=== PATIENT | male | born 2000 | race Caucasian/White ===

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

== ENCOUNTER 2019-07-11 07:08 | Emergency (ER) | payer MEDICAID ==
[~2019-07-11] VITALS: Ht 177.8 cm; Wt 64.6 kg
[~2019-07-11 07:08] MED LIST changes: +OMEP40CA13 PO; -OMEP40CA37 PO
[2019-07-11 07:12] VITALS: BP 155/83
[2019-07-11] MEDS ORDERED: ketorolac trometh. 30mg/ml inj. IM ONE (08:10)
== END 2019-07-11 09:30 | disposition home or self-care (01) ==
LOC: ER 07:09
DX: M25.532 Pain in left wrist (principal); F12.90 Cannabis use, unspecified, uncomplicated; Z87.891 Personal history of nicotine dependence; W51.XXXA Accidental striking against or bumped into by another person, initial encounter; Y93.71 Activity, boxing; Y92.89 Other specified places as the place of occurrence of the external cause; Y99.8 Other external cause status
CPT/HCPCS: 29125; 73110; 96372; 99283; J1885

== ENCOUNTER 2020-05-04 14:54 | Emergency (ER) | payer MEDICAID ==
[~2020-05-04] VITALS: Ht 177.8 cm; Wt 68.4 kg
[~2020-05-04 14:54] MED LIST changes: -CYCL-1 PO; -OMEP40CA13 PO
[2020-05-04 15:01] VITALS: BP 123/78
== END 2020-05-04 16:09 | disposition home or self-care (01) ==
LOC: ER 14:54
DX: M79.644 Pain in right finger(s) (principal); F12.90 Cannabis use, unspecified, uncomplicated
CPT/HCPCS: 73140; 99283

== ENCOUNTER 2022-05-12 22:13 | Emergency (ER) | payer MEDICAID ==
[~2022-05-12] VITALS: Ht 177.8 cm; Wt 72.7 kg
--- NOTE | 2022-05-12 22:21 | NUR ---
CHAPERONED TRIAGE BRAD RN FOR PT TRIAGE ASSESSMENT.
--- NOTE | 2022-05-12 22:32 | NUR ---
Pt to room and MD at BS
[2022-05-12] MEDS ORDERED: ibuprofen tablet 400 MG TABLET PO ONE (22:35)
[2022-05-12] MEDS ORDERED: CefTRIAXone 1000mg IM Kit (w/lidocaine diluent) IM ONE (23:00)
[2022-05-12] MEDS ORDERED: DOXY100C76 PO (23:57)
[2022-05-13] LABS: CLARITY,URINE CLEAR (Clear); COLOR,URINE YELLOW (Yellow); GLUCOSE, URINE NEGATIVE (Neg); KETONES,URINE NEGATIVE (Neg); LEUKOCYTE ESTERASE ,URINE NEGATIVE (Neg); NITRITES, URINE NEGATIVE (Neg); OCCULT BLOOD,URINE SMALL (Neg); PROTEIN,URINE NEGATIVE (Neg); UROBILINOGEN,URINE 0.2 E.U/dL (0.2-1.0)
[2022-05-13 00:13] LABS: UA COLLECTION TYPE CLN CATCH MIDSTREAM
[2022-05-13 00:14] LABS: BACTERIA,URINE NONE SEEN /HPF (Neg); RBC,URINE 0-2 /HPF (0-2); WBC,URINE 0-4 /HPF (0-4)
[2022-05-13 00:15] LABS: MUCUS STRANDS FEW /LPF (Neg); SQUAMOUS EPITHELIAL CELL,UR NONE SEEN /LPF (FEW)
[2022-05-13 00:22] VITALS: BP 123/76
== END 2022-05-13 00:24 | disposition home or self-care (01) ==
LOC: ER 22:15
DX: N50.812 Left testicular pain (principal); F12.90 Cannabis use, unspecified, uncomplicated; Z79.2 Long term (current) use of antibiotics
CPT/HCPCS: 36415; 76870; 81001; 87491; 87591; 93976; 96372; 99284; J0696; 81003

== ENCOUNTER 2024-07-26 12:38 | Outpatient (CLI) | payer MEDICAID | END 2024-07-26 23:59 | disposition home or self-care (01) | LOC: MRI 12:38 | PROVIDERS: ATTEND Orthopaedic Surgery | DX: M25.472 Effusion, left ankle (principal); M25.372 Other instability, left ankle; Z98.890 Other specified postprocedural states | CPT/HCPCS: 73721 ==

== ENCOUNTER 2025-01-13 12:50 | Emergency (ER) | payer MEDICAID ==
[~2025-01-13] VITALS: Ht 177.8 cm; Wt 79.0 kg
[2025-01-13 13:02] VITALS: BP 124/70; PULSE 69; RESP 18; O2SAT 100
--- NOTE | 2025-01-13 13:20 | Physician Documentation ---
History of Present Illness ~ Chief Complaint: Foot pain Stated Complaint: "I STEPPED ON A PEDRO NAIL LT FOOT" Time Seen by MD: 13:17 Primary Medical Doctor: none HPI This 24-year-old male who presents to the emergency department reporting that he stepped on a pedro nail with his left foot. Was wearing shoes. Unknown tetanus status. Denies other concerns. Tetanus witin 5 years: Yes Medication Reconciliation Allergies: Coded Allergies: No Known Allergies (Unverified , 01/13/25) Miscellaneous Medications Home Med List (No Home Medications), (Reported) Past Medical History Past Medical History: *PSYCH* Past Surgical History: noncontributory Alcohol Use: None Drug Use: marijuana Lives In: Home Occupation: child Review of Systems ROS As stated above in the HPI, otherwise all systems are reviewed and negative. Physical Exam Vital Signs: Temperature: 98.7, Source: Oral, Heart Rate: 69, Respiratory Rate: 18, BP: 124/70, Pulse Oximetry: 100, Weight: 79.050 Oxygen Flow Rate: 0 Physical Exam General: Alert, no apparent distress. Neck: Full range of motion. Respiratory: Lungs clear, no respiratory distress. Chest: No accessory muscle use. Cardiovascular: Regular rate and rhythm, no murmurs. Gastrointestinal: Soft, nontender, nondistended. Bowels sounds present. Extremities: Normal range of motion, no deformity. Neurologic: Oriented x4. Psychiatric: Normal mood and affect. Skin: Normal color, warm and dry. No edema, no ecchymosis. Puncture wound plantar aspect left mid foot. CMS intact distally. Progress Results/Orders Results/Orders Orders - ROSINA WALLACE NP Dressing Orders (01/13/25 13:18) Laceration/I&D Tray Set Up (01/13/25 13:18) Wound Care Orders (01/13/25 13:18) Completed Orders - ROSINA WALLACE NP Tetanus/Pertuss/Diph Acell/Pf (Boostrix (01/13/25 13:20) Medications Received in ER Medications (Trade) Dose Ordered Sig/Vick Route PRN Reason Start Time Stop Time Status Last Admin Dose Admin (Boostrix vaccine syringe) 0.5 ml ONCE ONCE IMVAC 01/13/25 13:20 01/13/25 13:21 DC 01/13/25 13:29 0.5 ML Vital Signs 01/13/25 13:02 Temp 98.7 Pulse 69 Resp 18 B/P (MAP) 124/70 Pulse Ox 100 O2 Flow Rate 0 Medical Decision Making General Diff Dx:Considerations: Include: Abrasion, Contusion, Fracture, Hematoma, Laceration, Malunion, Neurovascular injury, Open fracture, Sprain, Ulcer Departure Time of Disposition: 13:37 Disposition: 01 HOME / SELF CARE / HOMELESS Impression: Primary Impression: Foot pain Additional Impression: Puncture wound of left foot Condition: Stable Discharge Instructions: Puncture Wound Additional Instructions: Your tetanus was updated. Take the antibiotics. Return if worse. Referrals: NO PRIMARY CARE PROVIDER (PCP) Prescriptions Cephalexin*Monohydrate* (Keflex*) 500 Mg Capsule 1 CAP PO BID for 7 Days, #14 CAP Prov: ROSINA WALLACE NP 01/13/25 Education Educated: Patient Educated regarding: diagnosis, treatment, prognosis, need for follow up Signature Scribe Signature: x Attestation: The note accurately reflects work and decisions made by me.Rosina Matthew NP 01/13/25 13:40 ROSINA WALLACE NP Jan 13, 2025 13:20
[2025-01-13] MEDS: TETanus/Pertussis (Acell)/Diphther VAC/PF (Tdap-Adult) 0.5ml syringe IMVAC ONE (13:29)
[2025-01-13] MEDS ORDERED: CEPH-585 PO (13:39)
[2025-01-13 13:50] VITALS: TEMP 98.7
== END 2025-01-13 13:56 | disposition home or self-care (01) ==
LOC: ER 12:51
DX: S91.332A Puncture wound without foreign body, left foot, initial encounter (principal); F12.90 Cannabis use, unspecified, uncomplicated; W45.0XXA Nail entering through skin, initial encounter; Y93.89 Activity, other specified; Y92.89 Other specified places as the place of occurrence of the external cause; Y99.8 Other external cause status
CPT/HCPCS: 90471; 90715; 99283; J7030